=== PATIENT | male | born 1950 | race Caucasian/White ===

== ENCOUNTER 2016-10-22 15:45 | Observation (INO) | payer OTHER ==
[~2016-10-22] VITALS: Ht 167.6 cm; Wt 78.5 kg
[~2016-10-22 15:45] MED LIST: ACETAMINOPHEN325 M1 PO; AGGRENOX1 CAPSULE PO; AMOXICILLIN500 M1 PO; ASPIRIN325 MG PO; ASPIRIN81 M1 PO; Aspirin PO; BENZONATATE200 MG PO; BISAC-EVAC10 MG PR; CAL-CITRATE PL1 EACH PO; CALCITONIN-SAL3.8 ML ALT NARES; CALCITRATE + D1 EACH PO; CARBAMAZEPINE200 MG PO; CARBATROL-ER200 MG PO; CITALOPRAM HBR20 M1 PO; CITRACAL + D M1 EACH PO; CLARITIN,ALAVAR10 MG PO; CORTIZONE-10 PL57 GM TP; DAILY VALUE1 EACH PO; DEPAKENE250 MG/5 M PO; DEPAKOTE500 MG PO; DIVALPROEX SOD500 MG PO; DULCOLAX10 MG PR; Depakote PO; ENEMA READY-TO133 ML PR; ENEMA133 M2 PR; EXTRA STRENGTH500 M1 PO; FORTICAL3.7 ML ALT NARES; HYDROXYZINE HCL25 M1 PO; KEPPRA500 MG PO; LEVAQUIN500 MG PO; LOPERAMIDE2 M1 PO; LOPERAMIDE2 MG PO; LORATADINE10 M2 PO; MELOXICAM15 MG PO; METFORMIN HCL500 MG PO; MIACALCIN4 ML NS; MILK OF MAGN PO; MIRALAX17 GM PO; MIRALAX255 GM PO; MOTRIN600 MG PO; MULTI VITAMIN1 EACH PO; NON-ASPIRIN PA500 MG PO; OMEPRAZOLE20 M3 PO; OMEPRAZOLE20 MG PO; ONDANSETRON HCL4 M1 PO; ONDANSETRON ODT4 MG PO; PANTOPRAZOLE SO40 MG PO; PLAVIX75 MG PO; PRILOSEC20 MG PO; PROMETHAZINE HC25 M1 PO; PROTONIX40 MG PO; SENNA LAX8.6 MG PO; SENNA LAXATIVE8.6 MG PO; SENNA8.6 MG PO; SIMVASTATIN10 MG PO; TEGRETOL200 MG PO; TEGretol PO; TESSALON200 MG PO; TORADOL10 MG PO; TRAMADOL HCL50 MG PO; TRAZODONE HCL50 MG PO; TYLENOL REGULA325 MG PO; ZOCOR10 MG PO; ZOFRAN4 MG PO; Zocor PO; [UNRECOGNIZED DRUG - CODE] DT
[2016-10-22 16:45] LABS: EOSINOPHIL (%) 0.5 % (0-5); EOSINOPHIL COUNT 0.1 K/uL (0-0.3); HEMATOCRIT 37.6 % (38.0-50.0); IMMATURE GRANULOCYTE (%) 0.4 % (0.0-0.7); INSTRUMENT ABS NEUTROPHIL CT 8.7 K/uL; LYMPHOCYTE COUNT 0.7 K/uL (1.0-2.8); MCH 25.6 PG (29.0-34.0); MCHC 32.7 G/DL (30.0-36.0); MCV 78.2 FL (86-99); MEAN PLAT.VOLUME 9.3 uM^3 (9.0-12.4); MONOCYTE (%) 4.3 % (3-12); MONOCYTE COUNT 0.4 K/uL (0-0.8); NEUTROPHIL (%) 87.2 % (45-76); NEUTROPHIL COUNT 8.7 K/uL (1.8-6.4); PLATELET COUNT 247 K/uL (156-360); RBC DIS.WIDTH-CV 16.1 % (11.8-14.6); RBC DIS.WIDTH-SD 45.2 % (39-53); RED BLOOD COUNT 4.81 M/uL (4.00-5.50)
[2016-10-22 16:54] LABS: CHLORIDE 96 mEq/L (99-109); SODIUM 131 mEq/L (136-147)
[2016-10-22 16:56] LABS: GLUCOSE 119 mg/dL (70-99)
[2016-10-22 16:58] LABS: ANION GAP 11 MEQ/L (2-14)
[2016-10-22 17:00] LABS: GFR ESTIMATE (CALCULATED) > 59 mL/min/
[2016-10-22 17:01] LABS: UREA NITROGEN (BUN) 12 mg/dL (9-23)
[2016-10-22 17:25] LABS: ADD MIUA? YES; BILIRUBIN NEGATIVE; BLOOD NEGATIVE; COLOR YELLOW ((YELLOW)); GLUCOSE (STRIP) NEGATIVE; KETONES NEGATIVE; LEUKOCYTES TRACE; NITRITE NEGATIVE; PROTEIN (STRIP) NEGATIVE; UROBILINOGEN 0.2 MG/DL (0.2-1.0)
[2016-10-22 17:32] LABS: BACTERIA RARE /HPF; EPITHELIAL CELLS NONE SEEN /HPF; MUCUS TRACE /LPF; RED BLOOD CELLS 0-5 /HPF (0-5); UCUL ADDED? NO; WHITE BLOOD CELLS 15-20 /HPF (0-5)
[2016-10-22] MEDS ORDERED: SUNSCREEN SPF8120 ML TP (20:52)
[2016-10-22] MEDS ORDERED: LATANOPROST2.5 ML LEFT EYE (20:55)
[2016-10-22] MEDS ORDERED: DAILY VITE1 EAC1 PO (20:55)
[2016-10-22] MEDS ORDERED: CHLORPROMAZINE10 MG PO (20:59)
[2016-10-22] MEDS ORDERED: DORZOLAMIDE-TIM10 ML LEFT EYE (21:00)
[2016-10-22] MEDS ORDERED: PRESERVISIO1 CAPSULE PO (21:02)
[2016-10-22 21:48] VITALS: BP 135/66
[2016-10-23 04:42] VITALS: BP 160/86
[2016-10-23 11:45] VITALS: BP 185/92
[2016-10-23] MEDS ORDERED: NORVASC5 MG PO (14:28)
[2016-10-23 16:10] VITALS: BP 152/76
== END 2016-10-23 18:44 | disposition home or self-care (01) ==
LOC: EME 15:45 → 5WEST 20:48 → EDOF 20:48 → 5WEST 21:52
PROVIDERS: Emergency Medicine
DX: R53.1 Weakness (principal); F73 Profound intellectual disabilities; Z86.73 Personal history of transient ischemic attack (TIA), and cerebral infarction without residual deficits; E87.1 Hypo-osmolality and hyponatremia; E78.5 Hyperlipidemia, unspecified; I65.21 Occlusion and stenosis of right carotid artery; I10 Essential (primary) hypertension; Z66 Do not resuscitate
CPT/HCPCS: 70450; 80048; 81003; 85025; 99281; 99285; G0378; G8978 GP CM; G8979 GP CM; G8980 GP CM; G8987 GO CN; G8988 GO CL; G8989 GO CN; J0360; J1630; J2060; J2405; J7040; J7050

== ENCOUNTER 2017-04-08 18:15 | Emergency (ER) | payer OTHER ==
[~2017-04-08] VITALS: Ht 165.1 cm; Wt 74.6 kg
[~2017-04-08 18:15] MED LIST changes: +CHLORPROMAZINE10 MG PO; +DAILY VITE1 EAC1 PO; +DORZOLAMIDE-TIM10 ML LEFT EYE; +LATANOPROST2.5 ML LEFT EYE; +NORVASC5 MG PO; +PRESERVISIO1 CAPSULE PO; +SUNSCREEN SPF8120 ML TP
[2017-04-08 21:04] LABS: CHLORIDE 107 mEq/L (99-109); POTASSIUM 4.1 mEq/L (3.7-5.4); SODIUM 137 mEq/L (136-147)
[2017-04-08 21:06] LABS: GLUCOSE 101 mg/dL (70-99)
[2017-04-08 21:08] LABS: ANION GAP 7 MEQ/L (2-14); TOTAL BILIRUBIN 0.3 mg/dL (0.0-1.0)
[2017-04-08 21:10] LABS: ALKALINE PHOSPHATASE 125 IU/L (3-129); EOSINOPHIL (%) 0.2 % (0-5); GFR ESTIMATE (CALCULATED) > 59 mL/min/; HEMATOCRIT 32.3 % (38.0-50.0); IMMATURE GRANULOCYTE (%) 0.2 % (0.0-0.7); INSTRUMENT ABS NEUTROPHIL CT 4.3 K/uL; LYMPHOCYTE COUNT 1.2 K/uL (1.0-2.8); MCH 22.7 PG (29.0-34.0); MCHC 31.6 G/DL (30.0-36.0); MCV 71.9 FL (86-99); MEAN PLAT.VOLUME 10.1 uM^3 (9.0-12.4); MONOCYTE (%) 9.7 % (3-12); MONOCYTE COUNT 0.6 K/uL (0-0.8); NEUTROPHIL (%) 70.4 % (45-76); NEUTROPHIL COUNT 4.3 K/uL (1.8-6.4); PLATELET COUNT 296 K/uL (156-360); RBC DIS.WIDTH-CV 19.2 % (11.8-14.6); RBC DIS.WIDTH-SD 48.4 % (39-53); RED BLOOD COUNT 4.49 M/uL (4.00-5.50); WHITE BLOOD COUNT 6.1 K/uL (4.1-10.2)
[2017-04-08 21:11] LABS: UREA NITROGEN (BUN) 14 mg/dL (9-23)
[2017-04-08 21:16] LABS: TROP-I INTERPRETATION NEGATIVE; TROPONIN-I < 0.01 ng/mL (0.0-0.30)
[2017-04-09 06:02] VITALS: BP 148/91
[2017-04-09] MEDS ORDERED: ZOFRAN ODT4 MG PO (18:21)
== END 2017-04-09 06:02 | disposition home or self-care (01) ==
LOC: EME 18:15
PROVIDERS: Emergency Medicine
DX: S01.111A Laceration without foreign body of right eyelid and periocular area, initial encounter (principal); W05.0XXA Fall from non-moving wheelchair, initial encounter; Y92.199 Unspecified place in other specified residential institution as the place of occurrence of the external cause; I69.351 Hemiplegia and hemiparesis following cerebral infarction affecting right dominant side; F32.9 Major depressive disorder, single episode, unspecified; Z99.3 Dependence on wheelchair
CPT/HCPCS: 70450; 71020; 80053; 81003; 84484; 85025; 99281; 99285

== ENCOUNTER 2017-04-09 13:33 | Emergency (ER) | payer OTHER ==
[~2017-04-09] VITALS: Ht 157.5 cm; Wt 74.2 kg
[2017-04-09 14:45] LABS: HEMATOCRIT 34.9 % (38.0-50.0); MCH 22.8 PG (29.0-34.0); MCHC 31.2 G/DL (30.0-36.0); MEAN PLAT.VOLUME 9.7 uM^3 (9.0-12.4); PLATELET COUNT 313 K/uL (156-360); RBC DIS.WIDTH-CV 19.4 % (11.8-14.6); RBC DIS.WIDTH-SD 49.1 % (39-53); RED BLOOD COUNT 4.78 M/uL (4.00-5.50); WHITE BLOOD COUNT 5.8 K/uL (4.1-10.2)
[2017-04-09 14:50] LABS: CHLORIDE 103 mEq/L (99-109); POTASSIUM 4.3 mEq/L (3.7-5.4); SODIUM 132 mEq/L (136-147)
[2017-04-09 14:53] LABS: GLUCOSE 100 mg/dL (70-99)
[2017-04-09 14:54] LABS: ANION GAP 7 MEQ/L (2-14)
[2017-04-09 14:55] LABS: TOTAL BILIRUBIN 0.4 mg/dL (0.0-1.0)
[2017-04-09 14:56] LABS: ALKALINE PHOSPHATASE 154 IU/L (3-129); GFR ESTIMATE (CALCULATED) > 59 mL/min/
[2017-04-09 14:57] LABS: UREA NITROGEN (BUN) 13 mg/dL (9-23)
[2017-04-09] MEDS ORDERED: ZOFRAN ODT4 MG PO (18:21)
[2017-04-09 18:27] VITALS: BP 144/77
== END 2017-04-09 18:28 | disposition home or self-care (01) ==
LOC: EME 13:33
DX: R11.10 Vomiting, unspecified (principal); R19.7 Diarrhea, unspecified; D64.9 Anemia, unspecified; E87.1 Hypo-osmolality and hyponatremia; F79 Unspecified intellectual disabilities; Z86.73 Personal history of transient ischemic attack (TIA), and cerebral infarction without residual deficits; I70.0 Atherosclerosis of aorta
CPT/HCPCS: 74177; 80053; 81003; 85027; 99281; 99285; J2405; J7030